=== PATIENT | male | born 1970 | race African-American/Black ===

== ENCOUNTER 2020-01-15 16:05 | Emergency (ER) | payer OTHER, BC, SELFPAY ==
[2020-01-15 16:15] VITALS: BP 165/99; PULSE 78; RESP 18; TEMP 36.1; O2SAT 98
--- NOTE | 2020-01-15 16:22 | ED_ITS ---
I attest that this documentation has been prepared under the direction and in the presence of Sergio Hallman MD. Delmi Orozco, Angle 01/15/20;16:29 HPI - Extremity Injury (Upper) General Chief Complaint: Extremity Injury, Upper Stated Complaint: R thumb injury Time Seen by Provider: 01/15/20 16:22 Source: patient Mode of arrival: ambulatory Limitations: no limitations History of Present Illness HPI narrative: A 49 y/o male presents to the ED with c/o right thumb pain. Pt states that he smashed his right thumb in a door at work at 8:30 AM and his pain has worsened since onset. Onset (ago): hour(s) (8:30 AM) Other Extremity Injury: Right: fingers (thumb) Place: work Related Data Home Medications Medication Instructions Recorded Confirmed No Home Medications 01/15/20 01/15/20 Allergies Allergy/AdvReac Type Severity Reaction Status Date / Time No Known Allergies Allergy Verified 01/15/20 16:20 Review of Systems Review of Systems: All systems reviewed & are unremarkable except as noted in HPI and below Musculoskeletal: Comments: Reports: right thumb pain PMFSH Social History Social History (Updated 01/15/20 @ 16:28 by Delmi Orozco) Smoking status: Never smoker Gender identity (if verbalized by the patient): Male Comments No significant PMHx. PCP: Dr. Wood Exam Narrative: Exam Narrative: GENERAL: Well-appearing, well-nourished, and in no acute distress. HEAD: Normocephalic, atraumatic. EYES: PERRLA and EOMI. ENT: Nares clear, no rhinorrhea or epistaxis. Mucous membranes moist. NECK: Supple. CHEST: Clear to auscultation. No respiratory distress. HEART: Regular rate and rhythm. No murmur heard. Normal peripheral pulses EXTREMITIES: Normal range of motion. No edema has a sub ungual hematoma of the right thumb. SKIN: Warm, dry, no rash. NEURO: No focal deficits. Alert and oriented x3. PSYCH: Normal mood and affect. Course Vital Signs Vital signs: Vital Signs Temperature 36.1 C L 01/15/20 16:15 Pulse Rate 78 01/15/20 16:15 Respiratory Rate 18 01/15/20 16:15 Blood Pressure 165/99 H 01/15/20 16:15 Pulse Oximetry 98 01/15/20 16:15 Temperature 36.1 C L 01/15/20 16:15 Pulse Rate 78 01/15/20 16:15 Respiratory Rate 18 01/15/20 16:15 Blood Pressure 165/99 H 01/15/20 16:15 Pulse Oximetry 98 01/15/20 16:15 Procedures Nail Trephination Nail Trephination #1: Location (finger): right and thumb Method of drainage: nail cautery Procedure successful: Yes Patient tolerated procedure: well Discharge Plan Discharge Clinical Impression: Subungual hematoma Patient Disposition: Home, Self-Care Condition: Stable Instructions: Antibiotic Form, Subungual Hematoma (ED) Additional Instructions: take Tylenol or Motrin for pain Prescriptions: No Action No Home Medications RF: 0 Follow-up/Referrals: PHYSICIAN,IPHONE DEVELOPER [Primary Care Provider] - Karthik Zuniga MD [Physician] - Time of Disposition: 16:46 I personally performed the services described in this documentation. All medical record entries made by the scribe were
== END 2020-01-15 17:05 | disposition home or self-care (01) ==
PROVIDERS: Emergency Provider Family Medicine
DX: S60.111A Contusion of right thumb with damage to nail, initial encounter (principal); W23.0XXA Caught, crushed, jammed, or pinched between moving objects, initial encounter
CPT/HCPCS: 11740; 99282